=== PATIENT | female | born 1945 | race African-American/Black ===

== ENCOUNTER 2016-04-07 18:44 | Emergency (ER) | payer MEDICARE ==
[~2016-04-07 18:44] MED LIST: AMLODIPINE BESY10 MG PO; ASPIRIN ENTERI325 M1 PO; FLEXERIL10 M1 PO; HYDRALAZINE HCL25 MG PO; HYDREA500 MG PO; LISINOPRIL20 MG PO; METOPROLOL SUCC50 MG PO; NORVASC10 MG PO; ZITHROMAX500 MG PO
== END 2016-04-07 19:08 | disposition home or self-care (01) ==
LOC: CED 18:44
DX: T82.838A Hemorrhage due to vascular prosthetic devices, implants and grafts, initial encounter (principal); N18.6 End stage renal disease; Z79.899 Other long term (current) drug therapy
CPT/HCPCS: 29260; 99283